=== PATIENT | female | born 1965 | race Caucasian/White ===

== ENCOUNTER 2018-09-10 15:14 | Inpatient (IN) | payer SELFPAY ==
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
[2018-09-10 17:52] LABS: ABS Basophils 0.1 10^3/ul (0-0.2); ABS Eosinophils 0 10^3/ul (0-0.6); ABS Lymphocytes 3.1 10^3/ul (1.0-4.8); ABS Monocytes 1.2 10^3/ul (0-0.8); ABS Neutrophils 13.8 10^3/ul (1.5-7.7); ABS Nucleated RBC 0 10^3/ul; Eosinophil % 0.2 %; Hematocrit 49 % (35-47); Hemoglobin 16.2 g/dl (12.0-16.0); Lymphocyte % 17.1 %; Mean Corpuscular HGB Conc 33 g/dl (31-36); Mean Corpuscular Hemoglobin 32 pg (27-31); Mean Corpuscular Volume 97 fL (80-97); Mean Platelet Volume 9.1 fL (7.4-10.4); Nucleated Red Blood Cells % 0.1; Platelet Count 181 10^3/ul (150-450); Red Blood Count 5.04 10^6/ul (4.00-5.40); Red Cell Distribution Width 15 % (10.5-15); White Blood Count 18.2 10^3/ul (3.5-10.8)
[2018-09-10 18:11] LABS: BUN/Creatinine Ratio 13.5 (8-20); C Reactive Protein 14.98 mg/L (<8.01); Calcium 10.1 mg/dL (8.6-10.3); EGFR African American 67.3 (>60); EGFR Non-African American 55.6 (>60); Globulin 4.1 g/dL (2-4); Potassium 5.3 mmol/L (3.5-5.0); Total Bilirubin 0.4 mg/dL (0.2-1.0); Total Protein 8.1 g/dL (6.4-8.9)
[2018-09-10] MEDS ORDERED: NS 0.9% 1000 ML** 2,000 ML IV ONE (18:20)
[2018-09-10] MEDS ORDERED: Piperacillin/Tazobac ADVAN(*) 3.375 GM in NS 0.9% 100 ML* 100 ML IVPB ONE ×2 (18:21→19:04)
[2018-09-10] MEDS ORDERED: Ondansetron INJ* 2 MG/ML VIAL IV PRN (19:04)
[2018-09-10] MEDS ORDERED: NS 0.9% 1000 ML** 1,000 ML IV SCH ×2 (19:15→22:15)
[2018-09-10 19:38] LABS: Urine Appearance Cloudy; Urine Bacteria 1+ (Absent); Urine Bilirubin Negative (Negative); Urine Blood Negative (Negative); Urine Color Amber; Urine Glucose Negative (Negative); Urine Ketones Negative (Negative); Urine Nitrite Negative (Negative); Urine Protein Negative (Negative); Urine Red Blood Cell 1+(3-5/hpf) (Absent); Urine Specific Gravity 1.021 (1.010-1.030); Urine Squamous Epithelial Cell Present (Absent); Urine Urobilinogen Positive (Negative); Urine White Blood Cell 2+(11-20/hpf) (Absent)
[2018-09-10] MEDS ORDERED: Zosyn per Pharmacy* NOTE FOLLOW UP SCH (20:00)
[2018-09-10] MEDS: Morphine VIAL* 4 MG/ML VIAL (1 ml vial) IV PRN ×2 (20:37→22:46)
[2018-09-10 21:02] LABS: Influenza A Molecular NEGATIVE (Negative); Influenza B Molecular NEGATIVE (Negative)
[2018-09-10 21:18] LABS: CO2 Carbon Dioxide 23 mmol/L (22-32); Calcium 7.9 mg/dL (8.6-10.3); Chloride 109 mmol/L (101-111); Sodium 139 mmol/L (135-145)
[2018-09-10] MEDS: Acetaminophen TAB* 325 MG PO PRN (21:21)
[2018-09-10 21:22] LABS: Anion Gap 7 mmol/L (2-11)
[2018-09-10 21:23] LABS: BUN/Creatinine Ratio 14.8 (8-20); Blood Urea Nitrogen 12 mg/dL (6-24); EGFR African American 89.8 (>60); EGFR Non-African American 74.3 (>60); Glucose 99 mg/dL (70-100)
[2018-09-10] MEDS ORDERED: Heparin VIAL(*) 5000 UNITS/ML VIAL (FIVE THOUSAND) SUBCUT SCH (22:00)
--- NOTE | 2018-09-10 22:43 | HP ---
HISTORY AND PHYSICAL: DATE OF ADMISSION: 09/10/18 PRIMARY CARE PROVIDER: None. ATTENDING PHYSICIAN WHILE IN THE HOSPITAL: Dr. Shelby Alexander (report dictated by Lázaro Forbes NP). CHIEF COMPLAINT: Right-sided abdominal pain, right flank pain, urinary hesitancy. HISTORY OF PRESENT ILLNESS: Ms. Velazquez is a 53-year-old female patient who [place] and is relocating back to [place], who is coming in today when it was noted that the last few days last week she has not been feeling well. She had intermittent stabbing right-sided flank pain. She has been, in addition to this, having difficulty with urination , stating that she has been having trouble initiating her stream. In addition to this, she says that she has been having hesitancy with her urination. She is feeling nauseated. She says her appetite has been down. She has not been feeling well. She was at the clinic today, there checked her temperature, it was noted that it was 100. They were concerned and they transferred her to the hospital because of her symptoms. She denies any vomiting. Denies having any diarrhea. She says the pain is mostly a sharp, stabbing pain on the right side. She also has pain with taking a deep breath, but she says she has a rib fracture, which is healing. She does have the discomfort, which she describes as a sharp, stabbing pain. This is unrelenting, has not gotten any better. She was concerned because the discomfort was not getting any better, the fever was noted. She came into the ER. She denied any dysuria, but is admitting to having hesitancy and again did state that her appetite was down. She has not had any URI or cold symptoms or has not been feeling any shortness of breath. She was evaluated in the ED. It was noted that she appeared to be septic, actually in a septic shock with lactic acid of 5.1, and because of this, we were asked to evaluate her for admission. PAST MEDICAL HISTORY: She had a L1 compression fracture and a history of arthritis. PAST SURGICAL HISTORY: Denied. MEDICATIONS: Home medications denied. ALLERGIES: Allergies to medications include no known drug allergies. FAMILY HISTORY: Both her parents, she said, had cancer. SOCIAL HISTORY: She is a 5 to 6 cigarettes a day smoker. She occasionally drinks alcohol. Denies recreational drug abuse with the exception of edibles. Surrogate decision maker is her friend, Angelo. REVIEW OF SYSTEMS: There was again documented fever, but there is none here. She denied having any significant weight change. There was no double vision. She denied having any ear discharge. There was no rhinorrhea. There was no sore throat. No thyroid enlargement. She did admit to having abdominal pain per my HPI. There was 1 episode of nausea, but no vomiting. No dysuria, no frequency. No seizure. There was no loss of consciousness. No pruritus and no skin ulcerations. Review of 14 systems completed, all others negative. PHYSICAL EXAMINATION GENERAL: At this time, Ms. Velazquez is a 53-year-old female patient. She is sitting in the ED stretcher. She does not appear to be in any acute distress. VITAL SIGNS: Blood pressure 124/83, pulse 72, respirations 18, O2 sat 98%, temperature 99.2. HEENT: Head: Atraumatic and normocephalic. Eyes: EOMs are intact. Sclerae anicteric, not pale. Throat: Oral mucosa appears to be dry. No oropharyngeal erythema. NECK: Supple. LUNGS: Clear to auscultation. No wheezes, rales, or rhonchi. HEART: Sounds S1, S2. She had a regular rate and rhythm. There were no murmurs, rubs, or gallops. ABDOMEN: Soft. It was flat. There was tenderness in the right lower quadrant. There was CVA tenderness on the right side. She had bowel sounds that were present. EXTREMITIES: Pulses were 2+ throughout. She is moving all 4 extremities with 5 /5 strength. NEUROLOGIC: She is awake. She is alert. She is oriented x3. She had no gross focal deficits. SKIN: Intact. DIAGNOSTIC STUDIES/LAB DATA: Labs revealed a WBC of 18.2, RBC of 5.04, hemoglobin of 16.2, hematocrit of 49, platelet count of 181. Sodium was 140, potassium 5.3, chloride of 103, bicarb 31, BUN 14, creatinine 1.04, glucose 105 , lactic 5.1, calcium 10.1. Total bili 0.4, AST 28, ALT 38, alk phos 84. CRP of 14.9. Her urine is pending. She had an abdomen and pelvis CT obtained today, which revealed normal appendix , no hydronephrosis or stone, 2.5 cm right ovarian cyst, mild compression deformity of the superior endplate of L1 with anterior wedging. This may be acute or subacute. No other acute disease seen. Old medical records were reviewed. ASSESSMENT AND PLAN: Ms. Velazquez is a 53-year-old female patient coming into the ED today with complaints of abdominal discomfort on her right side. She says that she has been having some urinary frequency and hesitancy. On evaluation today, there was concern for sepsis, possible pyelonephritis. We were asked to evaluate for admission. She will be admitted under inpatient status for: 1. Septic shock. Again, as evidenced prior, she had an elevated white count of 18.2, lactic acid of 5.1, she was noted to be febrile, initially tachy. She has responded well to fluids. She has received 2 L of fluids. She appears to be doing better with this. My plan would be to put her on Zosyn empirically. I am waiting on the urine to be done right now. I will repeat her lactic acid, panculture her. I am checking a chest x-ray as well and we will continue to follow. 2. History of L1 compression fracture. Continue with supportive care. 3. Arthritis. Continue meds as prescribed. 4. DVT prophylaxis: She will be placed on heparin subcu. 5. Fluids, electrolytes, and nutrition: She can have a clear liquid diet. TIME SPENT: Time spent on the admission was 60 minutes, greater than half of the time was spent [id number] with the patient obtaining my history and physical, other half of the time was spent going over the plan of care with the patient and implementing plan of care. I did discuss the plan of care with my attending, Dr. Alexander; she is in agreement. LÁZARO FORBES, CHRISTI [id number]/[facility] #: [id number] KATERYNA
[2018-09-10] MEDS: ZOSYN 3.375 GM Q8H per EXTENDED INFUSION IVPB SCH ×2 (22:49)
[2018-09-10] MEDS ORDERED: NS 0.9% 1000 ML** 1,000 ML IV ONE (22:54)
--- NOTE | 2018-09-10 23:45 | PN ---
Sepsis Event Evaluation Date of Evaluation: 09/10/18 Time of Evaluation: 22:30 Current Stage of Sepsis: Severe Sepsis Vital Signs - Last 12 Hours: Vital Signs - 12 hr Temp Pulse Resp BP Pulse Ox 09/10/18 23:27 100.8 F 09/10/18 23:04 100.8 F 09/10/18 23:01 79 15 99 09/10/18 23:00 81 16 119/90 99 09/10/18 22:46 13 09/10/18 22:45 79 15 134/82 99 09/10/18 22:30 78 15 131/79 99 09/10/18 22:15 79 15 140/88 99 09/10/18 22:01 81 12 100 09/10/18 22:00 73 14 141/94 99 09/10/18 21:45 74 18 153/99 100 09/10/18 21:30 77 16 147/85 99 09/10/18 21:15 80 12 138/85 100 09/10/18 21:01 76 21 99 09/10/18 21:00 84 28 123/86 100 09/10/18 20:45 83 15 128/82 99 09/10/18 20:37 21 09/10/18 20:30 83 14 135/91 98 09/10/18 20:17 99.5 F 82 18 121/78 100 09/10/18 20:15 82 18 121/78 99 09/10/18 20:14 86 18 124/77 100 09/10/18 20:08 99.7 F 79 20 128/89 99 09/10/18 19:36 84 15 128/89 100 09/10/18 19:06 76 17 124/83 98 09/10/18 19:05 13 09/10/18 18:25 99 97 09/10/18 15:19 99.2 F 108 16 108/75 96 Lactic Acid: 09/10/18 09/10/18 16:52 21:23 Lactic Acid 5.1 H* 4.4 H* - Cardiopulmonary Exam Capillary Refill: Immediate Respiratory: Symmetrical Chest Expansion and Respiratory Effort Cardiovascular: NL Sounds; No Murmurs; No JVD - Skin Exam Skin Exam: Normal Turgor - [place] Coma Scale Best Eye Response: 4 - Spontaneous Best Motor Response: 6 - Obeys Commands Best Verbal Response: 5 - Oriented Coma Scale Total: 15 Assess/Plan/Problems-Billing Assessment: Status and Disposition: Scoring for severe sepsis due to lactic, patient has no other signs of end organ dysfunciton, conitnue ivf, bolus, no pressure, as bp stable, will repeat lactic, continue abx
[2018-09-11 01:27] LABS: INR 1.1 (0.77-1.02)
[2018-09-11 01:31] LABS: Hematocrit 39 % (35-47); Hemoglobin 13.3 g/dl (12.0-16.0); Mean Corpuscular HGB Conc 34 g/dl (31-36); Mean Corpuscular Hemoglobin 33 pg (27-31); Mean Corpuscular Volume 98 fL (80-97); Platelet Count 47 10^3/ul (150-450); Red Blood Count 4.02 10^6/ul (4.00-5.40); Red Cell Distribution Width 15 % (10.5-15)
[2018-09-11 01:32] LABS: ABS Neutrophils 7.3 10^3/ul (1.5-7.7); Mean Platelet Volume 9.2 fL (7.4-10.4)
[2018-09-11 01:33] LABS: ABS Basophils 0 10^3/ul (0-0.2); ABS Eosinophils 0.1 10^3/ul (0-0.6); ABS Monocytes 0.7 10^3/ul (0-0.8); ABS Nucleated RBC 0 10^3/ul; Eosinophil % 0.5 %; Lymphocyte % 19.8 %; Nucleated Red Blood Cells % 0
[2018-09-11 02:04] LABS: Potassium 3.3 mmol/L (3.5-5.0)
[2018-09-11 02:05] LABS: BUN/Creatinine Ratio 11.1 (8-20); Calcium 7.2 mg/dL (8.6-10.3); EGFR African American 102.9 (>60); EGFR Non-African American 85.1 (>60)
--- NOTE | 2018-09-11 02:07 | PN ---
Hospitalist Progress Note Date of Service: 09/11/18 patient has an adenxal cyst: advised patient to follow up as outpatient with [facility] , patient verbalized understanding of following this up. has L1 compression fracture- patient reports this happened about a month ago.
[2018-09-11] MEDS: NS 0.9% w/ 40 Meq KCL 1000 ML* 1,000 ML IV SCH ×3 (02:31→22:15)
--- NOTE | 2018-09-11 02:33 | PN ---
Hospitalist Progress Note Date of Service: 09/11/18 Platlets have dropped 181 to 47. She received subQ heparin for DVT PPX. will get HIT antibiody test. d/c heparin start fondaparinux
[2018-09-11] MEDS: Morphine VIAL* 4 MG/ML VIAL (1 ml vial) IV PRN ×6 (04:10→22:20)
[2018-09-11] MEDS: ZOSYN 3.375 GM Q8H per EXTENDED INFUSION IVPB SCH ×6 (06:24→22:15)
[2018-09-11] MEDS: Acetaminophen TAB* 325 MG PO PRN ×3 (08:38→23:47)
[2018-09-11] MEDS ORDERED: FONDAPARINUX 5 MG/0.4 ML SUBCUT SCH (09:00)
--- NOTE | 2018-09-11 10:14 | PN ---
Subjective Date of Service: 09/11/18 Interval History: Pt is feeling lousy today. She states she feels weak, achy, she is hungry. She does c/o more focal pain in the R flank. No diarrhea. No cough or sputum production. Objective Active Medications: Acetaminophen (Tylenol Tab*) 650 mg PO Q4H PRN PRN Reason: FEVER/PAIN Last Admin: 09/11/18 08:38 Dose: 650 mg Fondaparinux (Fondaparinux*) 5 mg SUBCUT DAILY [facility] Piperacillin Sod/Tazobactam (Sod 3.375 gm/ Sodium Chloride) 100 mls @ 25 mls/ hr IVPB Q8H [facility] Last Admin: 09/11/18 06:24 Dose: 25 mls/hr Potassium Chloride/Sodium Chloride (Ns 0.9% W/ 40 Meq Kcl 1000 Ml*) 1,000 mls @ 100 mls/hr IV PER RATE [facility] Last Admin: 09/11/18 02:31 Dose: 100 mls/hr Morphine Sulfate (Morphine Vial*) 2 mg IV Q4H PRN PRN Reason: PAIN - MILD Last Admin: 09/11/18 08:14 Dose: 2 mg Ondansetron HCl (Zofran Inj*) 4 mg IV Q6H PRN PRN Reason: NAUSEA Pharmacy Consult (Zosyn Per Pharmacy*) 1 note FOLLOW UP .ZOSYN PER PHARMACY [facility] Vital Signs - 8 hr 09/11/18 09/11/18 09/11/18 02:15 02:30 02:45 Temperature Pulse Rate 69 75 74 Respiratory 17 15 15 Rate Blood Pressure 141/89 127/79 118/76 (mmHg) O2 Sat by Pulse 97 96 96 Oximetry 09/11/18 09/11/18 09/11/18 03:00 03:01 03:15 Temperature 100.8 F Pulse Rate 72 72 70 Respiratory 15 15 16 Rate Blood Pressure 124/75 129/80 (mmHg) O2 Sat by Pulse 96 96 96 Oximetry 09/11/18 09/11/18 09/11/18 03:30 03:45 04:00 Temperature Pulse Rate 73 70 68 Respiratory 18 16 17 Rate Blood Pressure 138/88 145/87 144/88 (mmHg) O2 Sat by Pulse 97 97 98 Oximetry 09/11/18 09/11/18 09/11/18 04:01 04:10 04:15 Temperature Pulse Rate 68 71 Respiratory 17 18 17 Rate Blood Pressure 134/85 (mmHg) O2 Sat by Pulse 98 97 Oximetry 09/11/18 09/11/18 09/11/18 04:30 04:45 05:00 Temperature Pulse Rate 68 72 62 Respiratory 17 18 15 Rate Blood Pressure 137/88 138/86 155/94 (mmHg) O2 Sat by Pulse 98 98 99 Oximetry 09/11/18 09/11/18 09/11/18 05:01 05:15 05:30 Temperature Pulse Rate 67 75 73 Respiratory 15 16 14 Rate Blood Pressure 141/93 142/91 (mmHg) O2 Sat by Pulse 99 97 97 Oximetry 09/11/18 09/11/18 09/11/18 05:45 06:00 06:01 Temperature Pulse Rate 80 83 83 Respiratory 20 18 16 Rate Blood Pressure 121/69 134/77 (mmHg) O2 Sat by Pulse 95 95 96 Oximetry 09/11/18 09/11/18 09/11/18 06:15 06:26 06:30 Temperature 100.3 F Pulse Rate 86 85 Respiratory 20 17 Rate Blood Pressure 153/85 135/83 (mmHg) O2 Sat by Pulse 95 96 Oximetry 09/11/18 09/11/18 09/11/18 06:45 07:00 08:00 Temperature Pulse Rate 82 84 74 Respiratory 16 17 14 Rate Blood Pressure 127/80 138/81 (mmHg) O2 Sat by Pulse 96 97 99 Oximetry 09/11/18 09/11/18 09/11/18 08:01 08:14 08:30 Temperature 102.0 F Pulse Rate 76 69 Respiratory 18 17 18 Rate Blood Pressure 133/70 (mmHg) O2 Sat by Pulse 98 100 Oximetry 09/11/18 09/11/18 09/11/18 09:00 09:01 09:30 Temperature 101.7 F Pulse Rate 85 89 82 Respiratory 21 17 15 Rate Blood Pressure 126/76 137/84 (mmHg) O2 Sat by Pulse 95 96 95 Oximetry 09/11/18 09/11/18 10:01 10:02 Temperature Pulse Rate 81 79 Respiratory 17 24 Rate Blood Pressure 138/86 (mmHg) O2 Sat by Pulse 97 97 Oximetry Oxygen Devices in Use Now: None Appearance: Middle aged female lying in bed, NAD Eyes: No Scleral Icterus Ears/Nose/Mouth/Throat: Mucous Membranes Moist Respiratory: Symmetrical Chest Expansion and Respiratory Effort, Clear to Auscultation Cardiovascular: NL Sounds; No Murmurs; No JVD, RRR, No Edema Abdominal: - - BS+ soft, ND, mildly tender to palpation in the bilateral LQ, L>R Extremities: No Clubbing, Cyanosis Skin: No Nodules or Sclerosis, - - tattoos scattered across her body Neurological: Alert and Oriented x 3 Result Diagrams: 09/11/18 01:02 09/11/18 01:01 Microbiology and Other Data: Microbiology 09/10/18 20:15 Nasal Screen MRSA (PCR) - Final Nasal Mrsa Detected 09/10/18 19:11 Influenza Types A,B Antigen - Final Nasopharyngeal Specimen received for Influenza A/B Molecular testing Assess/Plan/Problems-Billing Ms Velazquez is a 53 yo F who has a h/o a recent L1 compression fracture and OA who presented to the ER with c/o fever, R flank pain and difficulty with urination and was admitted with septic shock secondary to unclear source but possibly UTI. - Patient Problems (1) Septic shock Current Visit: Yes Status: Acute Code(s): A41.9 - SEPSIS, UNSPECIFIED ORGANISM; R65.21 - SEVERE SEPSIS WITH SEPTIC SHOCK SNOMED Code(s): 58059561 Comment: The patient met for septic shock on admission with tachycardia, leukocytosis and markedly elevated lactic acid of 5.1. Source of infection is not clear. ? UTI given urinary symptoms vs viral illness vs other. Will await cultures (urine and blood). She remains febrile today but her tachycardia, leukocytosis and lactic acidosis has resolved with IVF hydration. (2) UTI (urinary tract infection) Current Visit: Yes Status: Acute Comment: Will continue zosyn as was started on admission for possible urinary source. Await culture. CT negative for stone/pyelonephritis or other source of abdominal infection. (3) Thrombocytopenia Current Visit: Yes Status: Acute Code(s): D69.6 - THROMBOCYTOPENIA, UNSPECIFIED SNOMED Code(s): 671927887 Comment: The patient's plt count dropped dramatically today. ? thrombocytopenia secondary to sepsis vs HIT. HIT Ab sent. Switched to fondaparinux. Recheck CBC this afternoon. (4) Compression fracture of L1 vertebra Current Visit: Yes Status: Acute Code(s): S32.010A - WEDGE COMPRESSION FRACTURE OF FIRST LUMBAR VERTEBRA, INIT SNOMED Code(s): 082085576 Comment: Continue prn tylenol and morphine. (5) DVT prophylaxis Current Visit: Yes Status: Acute Code(s): IVN2056 - SNOMED Code(s): 553189225 Comment: fondaparinux (6) Full code status Current Visit: Yes Status: Acute Code(s): Z78.9 - OTHER SPECIFIED HEALTH STATUS SNOMED Code(s): 630149775 Status and Disposition: Scoring for severe sepsis due to lactic, patient has no other signs of end organ dysfunciton, conitnue ivf, bolus, no pressure, as bp stable, will repeat lactic, continue abx
[2018-09-11 17:18] LABS: ABS Basophils 0.1 10^3/ul (0-0.2); ABS Eosinophils 0 10^3/ul (0-0.6); ABS Lymphocytes 2.1 10^3/ul (1.0-4.8); ABS Monocytes 1.1 10^3/ul (0-0.8); ABS Neutrophils 8.8 10^3/ul (1.5-7.7); ABS Nucleated RBC 0 10^3/ul; Eosinophil % 0.3 %; Hematocrit 41 % (35-47); Hemoglobin 13.4 g/dl (12.0-16.0); Lymphocyte % 17.2 %; Mean Corpuscular HGB Conc 33 g/dl (31-36); Mean Corpuscular Hemoglobin 32 pg (27-31); Mean Corpuscular Volume 97 fL (80-97); Mean Platelet Volume 9.1 fL (7.4-10.4); Nucleated Red Blood Cells % 0.1; Platelet Count 110 10^3/ul (150-450); Red Blood Count 4.17 10^6/ul (4.00-5.40); Red Cell Distribution Width 14 % (10.5-15); White Blood Count 12.1 10^3/ul (3.5-10.8)
[2018-09-11] MEDS ORDERED: Nicotine Inhaler* 10 MG AMP INH PRN (19:51)
[2018-09-11] MEDS ORDERED: Mouth Piece, Nicotine* 1 EACH CARTRIDGE ONE (20:03)
[2018-09-11] MEDS ORDERED: Nicotine Inhaler* 10 MG AMP ONE (20:04)
[2018-09-11] MEDS ORDERED: Mouth Piece, Nicotine* 1 EACH CARTRIDGE INH ONE (21:00)
[2018-09-12] MEDS: Morphine VIAL* 4 MG/ML VIAL (1 ml vial) IV PRN ×4 (01:14→12:49)
[2018-09-12] MEDS ORDERED: NS 0.9% 500 ML* 500 ML IV ONE (03:30)
[2018-09-12] MEDS ORDERED: NS 0.9% 1000 ML** 1,000 ML IV ONE (05:09)
[2018-09-12] MEDS: ZOSYN 3.375 GM Q8H per EXTENDED INFUSION IVPB SCH ×6 (06:20→23:04)
[2018-09-12] MEDS: Fondaparinux* 7.5 MG/0.6 ML SYRINGE SUBCUT SCH (08:07)
[2018-09-12] MEDS: NS 0.9% w/ 40 Meq KCL 1000 ML* 1,000 ML IV SCH (11:03)
[2018-09-12] MEDS ORDERED: Morphine INJ* 2 MG/ML 1 ML SYRINGE (TWO MG - NEW SYRINGE VERSION) IV PRN (13:05)
[2018-09-12] MEDS: HYDROmorphone TAB* 2 MG PO PRN ×2 (15:49→19:40)
--- NOTE | 2018-09-12 17:16 | PN ---
Subjective Date of Service: 09/12/18 Interval History: Dena complains of ongoing RLQ pain. It feels like a cramp. It does not radiate. No constipation or diarrhea. She was febrile overnight but has not been yet today. SHe denies cough, sputum, shortness of breath. She does think she had some sinus congestion last week. Blood cultures were reported postive to me this morning for H. influenzae. Objective Active Medications: Acetaminophen (Tylenol Tab*) 650 mg PO Q4H PRN PRN Reason: FEVER/PAIN Last Admin: 09/11/18 23:47 Dose: 650 mg Fondaparinux (Arixtra*) 7.5 mg SUBCUT DAILY [facility] Last Admin: 09/12/18 08:07 Dose: 7.5 mg Hydromorphone HCl (Dilaudid Tab*) 2 mg PO Q4H PRN PRN Reason: PAIN Last Admin: 09/12/18 15:49 Dose: 2 mg Piperacillin Sod/Tazobactam (Sod 3.375 gm/ Sodium Chloride) 100 mls @ 25 mls/ hr IVPB Q8H [facility] Last Admin: 09/12/18 15:49 Dose: 25 mls/hr Potassium Chloride/Sodium Chloride (Ns 0.9% W/ 40 Meq Kcl 1000 Ml*) 1,000 mls @ 100 mls/hr IV PER RATE [facility] Last Admin: 09/12/18 11:03 Dose: 100 mls/hr Nicotine (Nicotine Inhaler*) 10 mg INH Q2H PRN PRN Reason: CRAVING Last Admin: 09/11/18 20:12 Dose: 10 mg Ondansetron HCl (Zofran Inj*) 4 mg IV Q6H PRN PRN Reason: NAUSEA Pharmacy Consult (Zosyn Per Pharmacy*) 1 note FOLLOW UP .ZOSYN PER PHARMACY [facility] Vital Signs - 8 hr 09/12/18 09/12/18 09/12/18 09:46 10:06 11:04 Temperature Pulse Rate Respiratory 16 14 16 Rate Blood Pressure (mmHg) O2 Sat by Pulse Oximetry 09/12/18 09/12/18 09/12/18 11:31 12:49 15:01 Temperature 98.6 F Pulse Rate 66 Respiratory 18 16 16 Rate Blood Pressure 104/49 (mmHg) O2 Sat by Pulse 98 Oximetry 01/26/19 01/26/19 15:17 15:49 Temperature 98.8 F Pulse Rate 73 Respiratory 18 16 Rate Blood Pressure 118/64 (mmHg) O2 Sat by Pulse 99 Oximetry Oxygen Devices in Use Now: None Appearance: alert, no distress Eyes: No Scleral Icterus Ears/Nose/Mouth/Throat: NL Teeth, Lips, Gums, Clear Oropharnyx, Mucous Membranes Moist, - - poor dentition with a broken bottom right tooth Neck: NL Appearance and Movements; NL JVP Respiratory: Symmetrical Chest Expansion and Respiratory Effort, Clear to Auscultation Cardiovascular: NL Sounds; No Murmurs; No JVD, RRR Abdominal: NL Sounds; No Tenderness; No Distention Lymphatic: No Cervical Adenopathy Extremities: No Edema, - - tattoos Skin: No Rash or Ulcers Neurological: Alert and Oriented x 3, - - no point tenderness over spinous processes. strength 5/5 in legs and sensation in tact. Result Diagrams: 09/11/18 17:08 09/11/18 01:01 Microbiology and Other Data: Microbiology 09/10/18 20:15 Nasal Screen MRSA (PCR) - Final Nasal Mrsa Detected 09/10/18 19:11 Influenza Types A,B Antigen - Final Nasopharyngeal Specimen received for Influenza A/B Molecular testing Assess/Plan/Problems-Billing Ms Velazquez is a 53 yo F who has a h/o a recent L1 compression fracture and OA who presented to the ER with c/o fever, R flank pain and difficulty with urination and was admitted with septic shock secondary to unclear source but possibly UTI. - Patient Problems (1) Haemophilus influenzae infection Current Visit: Yes Status: Acute Code(s): A49.2 - HEMOPHILUS INFLUENZAE INFECTION, UNSPECIFIED SITE SNOMED Code(s): 24233483 Comment: with 2/2 bottles + for h. flu without respiratory symptoms it is possible that the sinus congestion she described last week progressed to this but would be unusual in an immunocompetent individual check HIV to ensure immunocompetence she also has poor dentition with a broken tooth, which could be the source as well I am concerned now that the bacteremia has seeded in her abdomen causing her the pain she is experiencing Her CT abd/pelvis was negative at admission, but it was without contrast so I am ordering a repeat one with contrast Repeat blood cultures Check TTE (though no murmur and no peripheral stigmata of endocarditis) Continue zosyn (2) Compression fracture of L1 vertebra Current Visit: Yes Status: Acute Code(s): S32.010A - WEDGE COMPRESSION FRACTURE OF FIRST LUMBAR VERTEBRA, INIT SNOMED Code(s): 888079058 Comment: also on my differential is an epidural abscess or otherwise seeded vertebrae from this structural abnormality, but she does not have worse pain in her back which I would suspect I would consdier an MRI spine if persistently bacteremic and no other source (3) UTI (urinary tract infection) Current Visit: Yes Status: Acute Comment: doubt this is the source of her symptoms, nor her bactermia culture growing e coli zosyn will also cover this CT showed no pyelo or stones Status and Disposition: Scoring for severe sepsis due to lactic, patient has no other signs of end organ dysfunciton, conitnue ivf, bolus, no pressure, as bp stable, will repeat lactic, continue abx
[2018-09-12 18:36] LABS: HIT ELISA 0.077 OD (<0.400)
[2018-09-13] MEDS: HYDROmorphone TAB* 2 MG PO PRN ×3 (00:16→07:56)
[2018-09-13] MEDS: NS 0.9% w/ 40 Meq KCL 1000 ML* 1,000 ML IV SCH (02:52)
[2018-09-13] MEDS ORDERED: NS 0.9% 500 ML* 500 ML IV ONE (04:02)
[2018-09-13 04:47] LABS: ABS Basophils 0 10^3/ul (0-0.2); ABS Eosinophils 0.1 10^3/ul (0-0.6); ABS Monocytes 0.5 10^3/ul (0-0.8); ABS Neutrophils 4.3 10^3/ul (1.5-7.7); ABS Nucleated RBC 0 10^3/ul; Eosinophil % 1.7 %; Hematocrit 34 % (35-47); Hemoglobin 11.3 g/dl (12.0-16.0); Lymphocyte % 29.1 %; Mean Corpuscular HGB Conc 34 g/dl (31-36); Mean Corpuscular Hemoglobin 33 pg (27-31); Mean Corpuscular Volume 97 fL (80-97); Nucleated Red Blood Cells % 0; Platelet Count 91 10^3/ul (150-450); Red Blood Count 3.45 10^6/ul (4.00-5.40); Red Cell Distribution Width 14 % (10.5-15)
[2018-09-13 05:01] LABS: BUN/Creatinine Ratio 14.7 (8-20); Calcium 8.1 mg/dL (8.6-10.3); EGFR African American 98.2 (>60); EGFR Non-African American 81.1 (>60); Potassium 4.1 mmol/L (3.5-5.0)
[2018-09-13 08:00] LABS: Urine Appearance Clear; Urine Bilirubin Negative (Negative); Urine Blood Negative (Negative); Urine Color Straw; Urine Glucose Negative (Negative); Urine Ketones Negative (Negative); Urine Nitrite Negative (Negative); Urine Protein Negative (Negative); Urine Specific Gravity 1.004 (1.010-1.030); Urine Urobilinogen Negative (Negative)
[2018-09-13] MEDS: Fondaparinux* 7.5 MG/0.6 ML SYRINGE SUBCUT SCH (08:02)
[2018-09-13] MEDS: ZOSYN 3.375 GM Q8H per EXTENDED INFUSION IVPB SCH ×6 (08:02→22:33)
[2018-09-13] MEDS ORDERED: Iohexol 300* (CONTRAST) 10 ML SDV IV ONE (09:17)
[2018-09-13] MEDS: HYDROmorphone TAB* 4 MG PO PRN ×3 (12:24→21:37)
--- NOTE | 2018-09-13 16:09 | PN ---
Subjective Date of Service: 09/13/18 Interval History: Dena is quite down this morning. She wants a cigarette and doesn't want any nicotine replacement options. She still has RLQ pain that has not improved. She has been afebrile. Objective Active Medications: Acetaminophen (Tylenol Tab*) 650 mg PO Q4H PRN PRN Reason: FEVER/PAIN Last Admin: 09/11/18 23:47 Dose: 650 mg Fondaparinux (Arixtra*) 7.5 mg SUBCUT DAILY [facility] Last Admin: 09/13/18 08:02 Dose: 7.5 mg Hydromorphone HCl (Dilaudid Tab*) 4 mg PO Q4H PRN PRN Reason: PAIN Last Admin: 09/13/18 12:24 Dose: 4 mg Piperacillin Sod/Tazobactam (Sod 3.375 gm/ Sodium Chloride) 100 mls @ 25 mls/ hr IVPB Q8H [facility] Last Admin: 09/13/18 08:02 Dose: 25 mls/hr Nicotine (Nicotine Inhaler*) 10 mg INH Q2H PRN PRN Reason: CRAVING Last Admin: 09/11/18 20:12 Dose: 10 mg Ondansetron HCl (Zofran Inj*) 4 mg IV Q6H PRN PRN Reason: NAUSEA Pharmacy Consult (Zosyn Per Pharmacy*) 1 note FOLLOW UP .ZOSYN PER PHARMACY [facility] Vital Signs - 8 hr 09/13/18 09/13/18 09/13/18 09:53 10:55 12:04 Temperature 98.5 F Pulse Rate 58 Respiratory 16 16 16 Rate Blood Pressure 108/71 (mmHg) O2 Sat by Pulse 99 Oximetry 09/13/18 09/13/18 12:24 15:05 Temperature Pulse Rate Respiratory 16 16 Rate Blood Pressure (mmHg) O2 Sat by Pulse Oximetry Oxygen Devices in Use Now: None Appearance: no distress, resting in bed, depressed Eyes: No Scleral Icterus Ears/Nose/Mouth/Throat: - - poor dentition Neck: NL Appearance and Movements; NL JVP Respiratory: Symmetrical Chest Expansion and Respiratory Effort Cardiovascular: NL Sounds; No Murmurs; No JVD, RRR, - - no murmurs Abdominal: - - tender to palpation RLQ with guarding, no rebound, no cva tenderness Lymphatic: No Cervical Adenopathy Skin: - - tattoos Neurological: Alert and Oriented x 3 Result Diagrams: 09/13/18 04:21 09/13/18 04:21 Microbiology and Other Data: Microbiology 09/10/18 20:15 Nasal Screen MRSA (PCR) - Final Nasal Mrsa Detected 09/10/18 19:11 Influenza Types A,B Antigen - Final Nasopharyngeal Specimen received for Influenza A/B Molecular testing Assess/Plan/Problems-Billing Ms Velazquez is a 53 yo F who has a h/o a recent L1 compression fracture and OA who presented to the ER with c/o fever, R flank pain and was admitted with septic shock secondary to unclear source but possibly UTI, and now with blood cultures + for h. flu - Patient Problems (1) Haemophilus influenzae infection Current Visit: Yes Status: Acute Code(s): A49.2 - HEMOPHILUS INFLUENZAE INFECTION, UNSPECIFIED SITE SNOMED Code(s): 34490239 Comment: with 3/4 bottles + for h. flu without respiratory symptoms it is possible that the sinus congestion she described last week progressed to this but would be unusual in an immunocompetent individual check HIV to ensure immunocompetence she also has poor dentition with a broken tooth, which could be the source as well I was concerned for either an intraabdominal source or having seeded something, but a CT with contrast today shows no abnormality in the RLQ besides an ovarian cyst. Repeat blood cultures are pending Check TTE (though no murmur and no peripheral stigmata of endocarditis) Continue zosyn (2) Compression fracture of L1 vertebra Current Visit: Yes Status: Acute Code(s): S32.010A - WEDGE COMPRESSION FRACTURE OF FIRST LUMBAR VERTEBRA, INIT SNOMED Code(s): 969353999 Comment: also on my differential is an epidural abscess or otherwise seeded vertebrae from this structural abnormality, but she does not have worse pain in her back which I would suspect I would consdier an MRI spine if persistently bacteremic and no other source (3) UTI (urinary tract infection) Current Visit: Yes Status: Acute Comment: doubt this is the source of her symptoms, nor her bactermia culture growing e coli zosyn will also cover this CT showed no pyelo or stones Status and Disposition: Scoring for severe sepsis due to lactic, patient has no other signs of end organ dysfunciton, conitnue ivf, bolus, no pressure, as bp stable, will repeat lactic, continue abx
[2018-09-14] MEDS: HYDROmorphone TAB* 4 MG PO PRN ×2 (03:43→08:23)
[2018-09-14] MEDS: ZOSYN 3.375 GM Q8H per EXTENDED INFUSION IVPB SCH ×2 (06:11)
[2018-09-14] MEDS: Fondaparinux* 7.5 MG/0.6 ML SYRINGE SUBCUT SCH (08:24)
[2018-09-14] MEDS ORDERED: HYDROmorphone TAB* 2 MG PO PRN (08:48)
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
--- NOTE | 2018-09-14 13:44 | ECHO ---
Patient: LEOBARDO RENE [facility] Rec#: [id number] : 1965 Date: 09/14/2018 Age: 53y Height: 162.6 cm / 64.0 in Weight: 67.6 kg / 149.0 lbs Sex: F BSA: 1.7 Room#: [facility] Admit Date#: 09/10/2018 Type: Inpatient Referring: Magdalena Pabon MD Reading: David Hu MD High Density Press Operator: Corinne Richards RN RDCS Transthoracic Echocardiogram Indication: Bacteremia BP: 103/49 HR: 57 Rhythm: Bradycardia Findings History: Osteoarthritis, L1 compression fracture Technical Comments: The study quality is good. Left Ventricle: The left ventricular chamber size is normal. Septal wall hypertrophy is observed. Global left ventricular wall motion and contractility are within normal limits. There is normal left ventricular systolic function. The estimated ejection fraction is 60-65%. Normal left ventricular diastolic filling is observed. Left Atrium: The left atrium is slightly dilated. Right Ventricle: The right ventricular chamber size and systolic function are within normal limits. Right Atrium: The right atrial cavity size is normal. There is evidence of an atrial septal aneurysm. Aortic Valve: The aortic valve is trileaflet. The aortic valve leaflets are mildly thickened. There is aortic annular calcification. There is no evidence of aortic regurgitation. There is no evidence of aortic stenosis. Mitral Valve: The mitral valve leaflets are mildly thickened. There is mild to moderate mitral regurgitation. There is no evidence of mitral stenosis. Tricuspid Valve: The tricuspid valve leaflets are normal. There is mild tricuspid regurgitation. No pulmonary hypertension is noted. There is no tricuspid stenosis. Pulmonic Valve: The pulmonic valve appears normal. There is mild pulmonic regurgitation. Pericardium: There is no significant pericardial effusion. Aorta: There is no dilatation of the ascending aorta. There is no dilatation of the aortic arch. There is no dilation of the aortic root. Pulmonary Artery: The main pulmonary artery appears normal. Venous: The inferior vena cava appears normal in size. There is an approximate 50% respiratory change in the inferior vena cava dimension. Conclusions Global left ventricular wall motion and contractility are within normal limits. There is normal left ventricular systolic function. The estimated ejection fraction is 60-65%. The aortic valve leaflets are mildly thickened. There is no evidence of aortic stenosis. There is mild to moderate mitral regurgitation. The mitral valve leaflets are mildly thickened. There is mild tricuspid regurgitation. There is no significant pericardial effusion. Mild thickening of Aortic and mitral valves but no clear vegetations Measurements Name Value Normal Range RVDdMajor (2D) 3 cm (2.2 - 4.4) RAd ISD 4CH 3.8 cm (3.4 - 4.9) RA (A4C)W 3.1 cm (2.9 - 4.6) IVSd (2D) 1.1 cm (0.6 - 1) LVPWd (2D) 1 cm (0.6 - 1) LVIDd (2D) 4 cm (3.6 - 5.4) LVIDs (2D) 2.6 cm - LV FS (2D) 35 % (25 - 45) Aortic Annulus 2.1 cm (1.4 - 2.6) Ao root diameter (2D) 2.5 cm (2.1 - 3.5) Ascending Ao 2.6 cm (2.1 - 3.4) Aortic arch 2.4 cm (1.8 - 3.4) LA dimension (AP) 2D 3.9 cm (2.3 - 3.8) LAd ISD 4CH 3.9 cm (2.9 - 5.3) LA ISD 4CH W 4.1 cm (2.5 - 4.5) Name Value Normal Range LA ESV SP 4CH (A/L) 42 ml - LA ESV SP 2CH (A/L) 64 ml - LA ESV BP (A/L) 59 ml - LA ESV BP (A/L) index 34.1 ml/m2 - LA ESV SP 4CH (MOD) 37 ml - LA ESV SP 2CH (MOD) 61 ml - Name Value Normal Range MV E-wave Vmax 0.82 m/sec - MV deceleration time 271 msec - MV A-wave Vmax 0.71 m/sec - MV E:A ratio 1.2 ratio - LV septal e' Vmax 0.07 m/sec - LV lateral e' Vmax 0.11 m/sec - LV E:e' septal ratio 11.7 ratio - LV E:e' lateral ratio 7.5 ratio - Name Value Normal Range AV Vmax 1.3 m/sec - AV VTI 27.7 cm - AV peak gradient 7 mmHg - AV mean gradient 4 mmHg - LVOT Vmax 1.2 m/sec - LVOT VTI 25.2 cm - LVOT peak gradient 5 mmHg - LVOT mean gradient 3 mmHg - PATY Vmax 0.97 m/sec - Name Value Normal Range TR Vmax 2.5 m/sec - TR peak gradient 25 mmHg - RAP 8 mmHg - RVSP 33 mmHg - IVC diameter 1.5 cm - Name Value Normal Range PV Vmax 0.79 m/sec -
[2018-09-14] MEDS: cefTRIAXone(*) 1 GM in NS 0.9% 50 ML* 50 ML IVPB SCH (15:50)
[2018-09-14] MEDS: oxyCODONE/Acetamin 5/325 MG* TAB PO PRN (17:50)
[2018-09-15 06:11] LABS: ABS Basophils 0 10^3/ul (0-0.2); ABS Eosinophils 0.1 10^3/ul (0-0.6); ABS Lymphocytes 1.7 10^3/ul (1.0-4.8); ABS Monocytes 0.4 10^3/ul (0-0.8); ABS Neutrophils 2.9 10^3/ul (1.5-7.7); ABS Nucleated RBC 0 10^3/ul; Eosinophil % 2.7 %; Hematocrit 39 % (35-47); Hemoglobin 13.1 g/dl (12.0-16.0); Lymphocyte % 32.8 %; Mean Corpuscular HGB Conc 34 g/dl (31-36); Mean Corpuscular Hemoglobin 33 pg (27-31); Mean Corpuscular Volume 96 fL (80-97); Mean Platelet Volume 8.3 fL (7.4-10.4); Nucleated Red Blood Cells % 0; Platelet Count 150 10^3/ul (150-450); Red Cell Distribution Width 14 % (10.5-15); White Blood Count 5.2 10^3/ul (3.5-10.8)
[2018-09-15 06:43] LABS: BUN/Creatinine Ratio 19.8 (8-20); EGFR African American 89.8 (>60); EGFR Non-African American 74.3 (>60); Potassium 4.3 mmol/L (3.5-5.0)
[2018-09-15] MEDS: oxyCODONE/Acetamin 5/325 MG* TAB PO PRN (07:34)
[2018-09-15] MEDS: Fondaparinux* 7.5 MG/0.6 ML SYRINGE SUBCUT SCH (07:35)
--- NOTE | 2018-09-15 10:26 | PN ---
Subjective Date of Service: 09/15/18 Interval History: Ps' RLQ pain is getting better.Hungry due to NPO , awaiting TRISTIN Objective Active Medications: Acetaminophen (Tylenol Tab*) 650 mg PO Q4H PRN PRN Reason: FEVER/PAIN Last Admin: 09/11/18 23:47 Dose: 650 mg Fondaparinux (Arixtra*) 7.5 mg SUBCUT DAILY [facility] Last Admin: 09/15/18 07:35 Dose: 7.5 mg Ceftriaxone Sodium 1 gm/ (Sodium Chloride) 50 mls @ 200 mls/hr IVPB Q24H [facility] Last Admin: 09/14/18 15:50 Dose: 200 mls/hr Nicotine (Nicotine Inhaler*) 10 mg INH Q2H PRN PRN Reason: CRAVING Last Admin: 09/11/18 20:12 Dose: 10 mg Ondansetron HCl (Zofran Inj*) 4 mg IV Q6H PRN PRN Reason: NAUSEA Oxycodone/Acetaminophen (Percocet 5/325 Tab*) 1 tab PO Q4H PRN PRN Reason: PAIN Last Admin: 09/15/18 07:34 Dose: 1 tab Pharmacy Consult (Zosyn Per Pharmacy*) 1 note FOLLOW UP .ZOSYN PER PHARMACY [facility] Vital Signs - 8 hr 09/15/18 09/15/18 09/15/18 03:18 07:34 07:50 Temperature 98.2 F Pulse Rate 58 Respiratory 16 15 15 Rate Blood Pressure 99/62 (mmHg) O2 Sat by Pulse 100 Oximetry 09/15/18 09/15/18 08:24 08:29 Temperature 98.4 F Pulse Rate 52 Respiratory 8 17 Rate Blood Pressure 115/63 (mmHg) O2 Sat by Pulse 98 Oximetry Oxygen Devices in Use Now: None Appearance: 53 yo F in nAD, aAOx3 Eyes: No Scleral Icterus, PERRLA Ears/Nose/Mouth/Throat: NL Teeth, Lips, Gums, Clear Oropharnyx, Mucous Membranes Moist Neck: NL Appearance and Movements; NL JVP, Trachea Midline Respiratory: Symmetrical Chest Expansion and Respiratory Effort, Clear to Auscultation Cardiovascular: NL Sounds; No Murmurs; No JVD, RRR Abdominal: - - minmal RLQ tenderness, no rebound, no guarding, BS+ Lymphatic: No Cervical Adenopathy Extremities: No Edema, No Clubbing, Cyanosis Skin: No Rash or Ulcers, No Nodules or Sclerosis Neurological: Alert and Oriented x 3, NL Muscle Strength and Tone Result Diagrams: 09/15/18 05:36 09/15/18 05:36 Microbiology and Other Data: Microbiology 09/10/18 20:15 Nasal Screen MRSA (PCR) - Final Nasal Mrsa Detected 09/10/18 19:11 Influenza Types A,B Antigen - Final Nasopharyngeal Specimen received for Influenza A/B Molecular testing Assess/Plan/Problems-Billing Ms Velazquez is a 53 yo F who has a h/o a recent L1 compression fracture and OA who presented to the ER with c/o fever, R flank pain and was admitted with septic shock secondary to unclear source but possibly UTI, and now with blood cultures + for h. flu - Patient Problems (1) Haemophilus influenzae infection Comment: appreciate ID consult TTE neg, TRISTIN today. If TRISTIN neg OK for 2 weeks of Augmentin and can be discharged later on today (2) Septic shock Comment: The patient met for septic shock on admission with tachycardia, leukocytosis and markedly elevated lactic acid of 5.1. Source of infection is H. influenzae bacteremia. shock resolved (3) Compression fracture of L1 vertebra Comment: h/o L1 compression fx. MRI shows small L1 compresson fx and possible nerve root impingement on L-that does not correspond with RLQ pain. (4) RLQ abdominal mass Comment: ovarian cyst and liver mass noted.Tenderness in improving in RLQ. Recommended for pt to have outpatinet Defective Cigarette Slitter exam re: cyst liver US confirmed mass likely to be hemangioma (5) Thrombocytopenia Comment: Thrombocytopenia secondary to sepsis . HIT Ab neg. resolved (6) UTI (urinary tract infection) Comment: doubt this is the source of her symptoms, nor her bactermia culture growing e coli CT showed no pyelo or stones cont Ceftriaxone (7) DVT prophylaxis Comment: fondaparinux heparin d/c'd due to thrombocytopenia. platelet antibodies neg. Status and Disposition: inpatient
[2018-09-15] MEDS ORDERED: fentaNYL* 50 MCG/ML 2 ML VIAL (100 MCG VIAL) ONE (14:04)
[2018-09-15] MEDS ORDERED: Midazolam* 1 MG/ML 10 ML VIAL (10 MG) ONE ×2 (14:05→14:46)
[2018-09-15] MEDS ORDERED: Naloxone* 0.4 MG/ML 1 ML VIAL ONE (14:05)
[2018-09-15] MEDS ORDERED: Lidocaine 2% VISCOUS* 15 ML UDC ONE (14:05)
[2018-09-15] MEDS ORDERED: Flumazenil* 0.1 MG/ML 5 ML MDV ONE (14:05)
--- NOTE | 2018-09-15 16:00 | TEE ---
Patient: LEOBARDO RENE [facility] Rec#: [id number] : 1965 Date: 09/15/2018 Age: 53y Height: 163 cm / 64.2 in Weight: 66 kg / 145.5 lbs Sex: F BSA: 1.71 Room#: [facility] Admit Date#: 09/10/2018 Type: Inpatient Referring: Ratna Fortune MD Performing: David Hu MD Reading: David uH MD Account Coordinator: Aletha Javed RDCS Nurse: Gaurang WhitakerRN Nurse: Bushra Mcclendon Transesophageal Echocardiogram Indication: Bacteremia BP: 119/73 HR: 84 Rhythm: NSR Findings History: Osteoarthritis, L1 compression fracture. This is an abreviated study due to inability to adaquately sedate patient. Technical Comments: The study quality is good. Left Ventricle: The left ventricular chamber size is normal. Septal wall hypertrophy is observed. Global left ventricular wall motion and contractility are within normal limits. There is normal left ventricular systolic function. The estimated ejection fraction is 60-65%. Normal left ventricular diastolic filling is observed. Left Atrium: The left atrium is slightly dilated. Right Ventricle: The right ventricular cavity size is normal. The right ventricular global systolic function is normal. Right Atrium: The right atrial cavity size is normal. Aortic Valve: The aortic valve is trileaflet. The aortic valve leaflets are mildly thickened. There is aortic annular calcification. There is no evidence of aortic regurgitation. There is no evidence of aortic stenosis. There is no aortic vegetation present. Mitral Valve: The mitral valve leaflets are mildly thickened. There is mild mitral regurgitation. There is no evidence of mitral stenosis. No vegetation is observed on the mitral valve. Tricuspid Valve: The tricuspid valve leaflets are normal. There is mild tricuspid regurgitation. Unable to estimate the right ventricular systolic pressure. There is no tricuspid stenosis. No vegetation is observed on the tricuspid valve. Pulmonic Valve: The pulmonic valve appears normal. There is no pulmonic stenosis. No vegetation is observed on the pulmonic valve. Pericardium: There is no significant pericardial effusion. Aorta: There is no dilatation of the ascending aorta. The aortic root is normal in size. Pulmonary Artery: The main pulmonary artery is not well visualized. TRISTIN Procedures: The procedure was abbreviated due to the patient's medical condition. History and physical as well as labs were reviewed. The patient was in a fasting state. Risks and benefits of the procedure, including alternatives, were discussed and written informed consent was obtained. The patient and/or their health care ocean [employer] representative expressed understanding of the procedure, risks and benefits. Baseline and continuous monitoring of blood pressure, heart rate, pulse oximetry and heart rhythm was performed throughout the procedure. The appropriate time-out procedure was performed as per [facility] protocol. The patient was placed in the left lateral decubitus position. The patient's posterior pharynx was anesthetized with 20ml of 2% viscous lidocaine. The patient received IV Midazolam with a total dose of 10 mg. The patient received IV Fentanyl with a total dose of 50 mcg. An oral bite block was inserted for protection of oral dentition. The multiplane transesophageal echocardiogram probe was inserted through the posterior oropharynx and advanced into the esophagus without difficulty. Multiple 2D images were obtained of the heart and its related structures. Color flow Doppler was used for evaluation. Spectral Doppler was also used. At the conclusion of the procedure the probe was removed with continuous suction without complications. The patient tolerated the procedure with no apparent complications. Conclusions This is an abreviated study due to inability to adaquately sedate patient. Global left ventricular wall motion and contractility are within normal limits. There is normal left ventricular systolic function. The estimated ejection fraction is 60-65%. There is no evidence of aortic stenosis. There is no aortic vegetation present. There is mild mitral regurgitation. No vegetation is observed on the mitral valve. There is mild tricuspid regurgitation. Unable to estimate the right ventricular systolic pressure. No vegetation is observed on the tricuspid valve. There is no significant pericardial effusion. Measurements Name Value Normal Range Aortic Annulus 2.3 cm (1.4 - 2.6) Ao root diameter (2D) 3.3 cm (2.1 - 3.5) Ascending Ao 2.8 cm (2.1 - 3.4)
[2018-09-15 16:06] VITALS: BP 122/78
[2018-09-15] MEDS: cefTRIAXone(*) 1 GM in NS 0.9% 50 ML* 50 ML IVPB SCH (17:17)
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
== END 2018-09-15 18:45 | disposition home or self-care (01) | DRG 871 ==
LOC: ED 15:14 → ICU 19:01 → MED 09-11 19:55
PROVIDERS: ADMIT Internal Medicine; ATTEND Internal Medicine
PROC: B24BZZ4 Ultrasonography of Heart with Aorta, Transesophageal (ICD-10-PCS; principal; 2018-09-15 14:00)
DX: A41.3 Sepsis due to Hemophilus influenzae (principal); R65.21 Severe sepsis with septic shock; S32.010A Wedge compression fracture of first lumbar vertebra, initial encounter for closed fracture; N39.0 Urinary tract infection, site not specified; B96.20 Unspecified Escherichia coli [E. coli] as the cause of diseases classified elsewhere; R40.2362 Coma scale, best motor response, obeys commands, at arrival to emergency department; R40.2142 Coma scale, eyes open, spontaneous, at arrival to emergency department; R40.2252 Coma scale, best verbal response, oriented, at arrival to emergency department; I07.1 Rheumatic tricuspid insufficiency; R16.0 Hepatomegaly, not elsewhere classified; F41.9 Anxiety disorder, unspecified; F17.210 Nicotine dependence, cigarettes, uncomplicated; N83.201 Unspecified ovarian cyst, right side; M51.26 Other intervertebral disc displacement, lumbar region; M19.90 Unspecified osteoarthritis, unspecified site; D69.6 Thrombocytopenia, unspecified; Z80.9 Family history of malignant neoplasm, unspecified; Z72.89 Other problems related to lifestyle; V89.2XXA Person injured in unspecified motor-vehicle accident, traffic, initial encounter; Y92.9 Unspecified place or not applicable
CPT/HCPCS: 36415; 71045; 72148; 74176; 74177; 76705; 80048; 80053; 81003; 81015; 83605; 85025; 85060; 85610; 86022; 86140; 86703; 87040; 87077; 87086; 87185; 87186; 87205; 87641; 93005; 93306; 93312; 93325; 99156; 99285; 99406; A9270-GY; J0696; J1644; J1652; J2250; J2270; J2310; J2543; J3010; Q9967